=== PATIENT | male | born 1970 | race African-American/Black ===

== ENCOUNTER 2022-09-06 09:09 | Emergency (ER) | payer MEDICAID, OTHER ==
[~2022-09-06] VITALS: Ht 172.7 cm; Wt 90.0 kg
[2022-09-06 12:20] VITALS: BP 128/78
[2022-09-06] MEDS ORDERED: CYCL-837 PO (12:26)
== END 2022-09-06 12:42 | disposition home or self-care (01) ==
LOC: ER 09:09
DX: S39.012A Strain of muscle, fascia and tendon of lower back, initial encounter (principal); S70.12XA Contusion of left thigh, initial encounter; F17.210 Nicotine dependence, cigarettes, uncomplicated; F12.10 Cannabis abuse, uncomplicated; I10 Essential (primary) hypertension; V49.59XA Passenger injured in collision with other motor vehicles in traffic accident, initial encounter; Y93.89 Activity, other specified; Y92.89 Other specified places as the place of occurrence of the external cause; Y99.8 Other external cause status
CPT/HCPCS: 72100

== ENCOUNTER 2022-11-01 12:48 | Inpatient (IN) | payer MEDICAID ==
[~2022-11-01] VITALS: Ht 175.3 cm; Wt 60.3 kg
[~2022-11-01 12:48] MED LIST: CYCL-837 PO
[2022-11-01 14:04] LABS: Basophils # (auto) 0.1 10 ^3/uL (0-0.2); Eosinophils # (auto) 0.1 10 ^3/uL (0-0.8); Hematocrit 50.9 % (41.0-53.0); Hemoglobin 16.8 g/dL (13.5-17.5); Lymphocytes # (auto) 1.7 10 ^3/uL (0.4-5.4); Lymphocytes % (auto) 23.7 % (10.0-50.0); Mean Corpuscular Hemoglobin 31.5 pg (28.0-32.0); Mean Corpuscular Hgb Conc. 33.1 g/dL (32.0-36.0); Mean Corpuscular Volume 95.2 fL (80.0-100.0); Monocytes # (auto) 0.5 10 ^3/uL (0-1.3); Monocytes % (auto) 7.2 % (0.0-12.0); Neutrophils # (auto) 4.7 10 ^3/uL (1.6-8.6); Neutrophils % (auto) 66.1 % (37.0-80.0); Nucleated Red Blood Cells % 0.2 %; Red Blood Cells 5.35 10^6/uL (4.5-5.90); Red Cell Distribution Width 16.5 % (11.8-14.3); White Blood Cell 7.2 10^3/uL (4.4-10.8)
[2022-11-01 14:21] LABS: INR 1.35 (0.9-1.15)
[2022-11-01 14:30] LABS: Albumin 3.8 g/dL (3.4-5.0); BUN/Creatinine Ratio 12.4; Calcium 9.5 mg/dL (8.5-10.1); Magnesium 2.3 mg/dL (1.6-2.6); Potassium 4.2 mmol/L (3.5-5.1)
[2022-11-01 14:33] LABS: Bilirubin, Total 0.3 mg/dL (0.2-1.0); Total Protein 7.2 g/dL (6.4-8.2)
[2022-11-01] MEDS ORDERED: MORPHINE SULFATE INJ 2 MG/ml SYRG IV PRN ×2 (15:45)
[2022-11-01] MEDS ORDERED: NITROGLYCERIN 0.4 MG SL TAB SL PRN (15:45)
[2022-11-01] MEDS ORDERED: DOCUSATE SOD 100 MG CAP PO PRN (15:45)
[2022-11-01] MEDS ORDERED: ACETAMINOPHEN 325 MG TAB PO PRN (15:45)
[2022-11-01] MEDS ORDERED: ONDANSETRON HCL 4 MG/2 ML VIAL IV PRN (15:45)
[2022-11-01] MEDS ORDERED: D5W/SOD CHL 0.45% 1,000 ML IV ONE (16:00)
[2022-11-02 06:35] LABS: Basophils # (auto) 0 10 ^3/uL (0-0.2); Basophils % (auto) 0.8 % (0.0-2.0); Eosinophils # (auto) 0.2 10 ^3/uL (0-0.8); Eosinophils % (auto) 3.3 % (0.0-7.0); Hematocrit 48.2 % (41.0-53.0); Hemoglobin 15.6 g/dL (13.5-17.5); Lymphocytes # (auto) 1.6 10 ^3/uL (0.4-5.4); Lymphocytes % (auto) 26.8 % (10.0-50.0); Mean Corpuscular Hemoglobin 30.9 pg (28.0-32.0); Mean Corpuscular Hgb Conc. 32.4 g/dL (32.0-36.0); Mean Corpuscular Volume 95.2 fL (80.0-100.0); Monocytes # (auto) 0.5 10 ^3/uL (0-1.3); Monocytes % (auto) 8.6 % (0.0-12.0); Neutrophils # (auto) 3.6 10 ^3/uL (1.6-8.6); Neutrophils % (auto) 60.5 % (37.0-80.0); Nucleated Red Blood Cells % 0.2 %; Red Blood Cells 5.07 10^6/uL (4.5-5.90); Red Cell Distribution Width 16.4 % (11.8-14.3); White Blood Cell 5.9 10^3/uL (4.4-10.8)
[2022-11-02 06:50] LABS: Albumin 3.5 g/dL (3.4-5.0); Calcium 9.4 mg/dL (8.5-10.1); Potassium 4.1 mmol/L (3.5-5.1)
[2022-11-02 07:04] LABS: Bilirubin, Total 0.4 mg/dL (0.2-1.0)
[2022-11-02] MEDS: HYDROcodone-ACET 5/325MG TAB PO PRN ×2 (09:31→23:05)
[2022-11-02] MEDS ORDERED: LORazepam 2MG/ML-1ML VIAL IV PRN (10:00)
[2022-11-02] MEDS: ENOXAPARIN SOD 40 MG/0.4 ML SYRINGE SC SCH (10:12)
[2022-11-02] MEDS: ASPirin 81 mg TAB PO SCH (10:12)
[2022-11-02] MEDS ORDERED: hydrALAZINE HCL 20 MG/ML VL IV PRN (14:45)
[2022-11-02 22:00] VITALS: BP 158/83
[2022-11-02] MEDS ORDERED: AMLO-496 PO (22:53)
[2022-11-02] MEDS ORDERED: METF-869 PO (22:53)
[2022-11-02] MEDS ORDERED: METH500T22 PO (22:53)
[2022-11-02] MEDS: ATORVASTATIN 20 MG TAB PO SCH (23:04)
[2022-11-03 05:00] VITALS: BP 138/52
[2022-11-03 08:00] VITALS: BP 117/75
[2022-11-03] MEDS: ASPirin 81 mg TAB PO SCH (09:04)
[2022-11-03] MEDS: ENOXAPARIN SOD 40 MG/0.4 ML SYRINGE SC SCH (09:04)
[2022-11-03] MEDS: HYDROcodone-ACET 5/325MG TAB PO PRN (09:07)
[2022-11-03 13:00] VITALS: BP 144/85
[2022-11-03] MEDS: GABAPENTIN 300 MG CAP PO SCH ×2 (13:41→22:45)
[2022-11-03] MEDS: OXYCODONE W/ ACETAMINOPHEN 5/325MG TABLET PO PRN (16:26)
[2022-11-03] MEDS: metFORMIN HYDROCHLORIDE 500 MG TAB PO SCH (16:28)
[2022-11-03 17:00] VITALS: BP 127/76
[2022-11-03 22:00] VITALS: BP 134/75
[2022-11-03] MEDS: ATORVASTATIN 20 MG TAB PO SCH (22:44)
[2022-11-03] MEDS: METHOCARBAMOL 500 MG TAB PO SCH (22:46)
[2022-11-04] MEDS: OXYCODONE W/ ACETAMINOPHEN 5/325MG TABLET PO PRN (04:29)
[2022-11-04 05:00] VITALS: BP 127/59
[2022-11-04] MEDS: GABAPENTIN 300 MG CAP PO SCH ×3 (06:18→22:17)
[2022-11-04] MEDS: metFORMIN HYDROCHLORIDE 500 MG TAB PO SCH ×2 (08:00→18:00)
[2022-11-04 09:03] VITALS: BP 108/64
[2022-11-04] MEDS: ASPirin 81 mg TAB PO SCH (10:59)
[2022-11-04] MEDS: ENOXAPARIN SOD 40 MG/0.4 ML SYRINGE SC SCH (11:00)
[2022-11-04] MEDS: METHOCARBAMOL 500 MG TAB PO SCH ×2 (11:00→22:17)
[2022-11-04 13:00] VITALS: BP 121/78
[2022-11-04 16:38] VITALS: BP 109/56
[2022-11-04 19:35] LABS: Cholesterol 177 mg/dL (< 200); HDL Cholesterol 41 mg/dL (40-59); LDL Cholesterol 125 mg/dL (< 100); Triglycerides 91 mg/dL (< 150)
[2022-11-04 22:00] VITALS: BP 116/62
[2022-11-04] MEDS: ATORVASTATIN 20 MG TAB PO SCH (22:17)
[2022-11-04 22:47] LABS: Urine Bacteria NONE SEEN /hpf (None Seen); Urine Blood Negative /uL (Negative); Urine Specific Gravity 1.014 (1.001-1.035); Urine WBC <1 /hpf (0 - 3)
[2022-11-05] VITALS (20 sets, daily range): BP systolic 120–182; BP diastolic 64–99
[2022-11-05] MEDS: GABAPENTIN 300 MG CAP PO SCH ×3 (06:00→21:51)
[2022-11-05] MEDS: metFORMIN HYDROCHLORIDE 500 MG TAB PO SCH ×2 (08:00→18:00)
[2022-11-05] MEDS ORDERED: fentaNYL CITRATE 100 MCG/2 ML VL IV ONE (08:30)
[2022-11-05] MEDS ORDERED: LIDOCAINE VISCOUS 2% 15ML UD PO ONE (08:30)
[2022-11-05] MEDS ORDERED: MIDAZOLAM HCL 2MG/2ML 2ml VIAL (1mg/ml) IV ONE (08:30)
[2022-11-05] MEDS: METHOCARBAMOL 500 MG TAB PO SCH ×2 (10:00→21:51)
[2022-11-05] MEDS: ENOXAPARIN SOD 40 MG/0.4 ML SYRINGE SC SCH (10:00)
[2022-11-05] MEDS: ASPirin 81 mg TAB PO SCH (10:00)
[2022-11-05] MEDS ORDERED: IOHEXOL 350 MG/ML 100ML IJ ONE ×2 (12:41→13:28)
[2022-11-05] MEDS ORDERED: LIDOCAINE 2%HCL (LOCAL ANESTH.) INJ 20ML MDV ONE (12:42)
[2022-11-05] MEDS ORDERED: ANGIOMAX 250 MG VIAL IV ONE (13:27)
[2022-11-05] MEDS ORDERED: MIDAZOLAM HCL 2MG/2ML 2ml VIAL (1mg/ml) ONE (13:27)
[2022-11-05] MEDS ORDERED: GLYCOPYRROLATE 0.2 MG/ML 1ML VIAL ONE (13:27)
[2022-11-05] MEDS ORDERED: fentaNYL CITRATE 100 MCG/2 ML VL ONE (13:27)
[2022-11-05] MEDS ORDERED: SODIUM CHL 0.9% 0 ML ONE (13:27)
[2022-11-05] MEDS ORDERED: LIDOCAINE 2%HCL (LOCAL ANESTH.) INJ 10ml MDV ONE (13:45)
[2022-11-05] MEDS: ATORVASTATIN 20 MG TAB PO SCH (21:50)
[2022-11-05] MEDS: OXYCODONE W/ ACETAMINOPHEN 5/325MG TABLET PO PRN (21:52)
[2022-11-06 04:58] VITALS: BP 128/71
[2022-11-06] MEDS: GABAPENTIN 300 MG CAP PO SCH ×3 (06:30→21:12)
[2022-11-06 09:00] VITALS: BP 116/68
[2022-11-06] MEDS: METHOCARBAMOL 500 MG TAB PO SCH ×2 (09:29→21:55)
[2022-11-06] MEDS: metFORMIN HYDROCHLORIDE 500 MG TAB PO SCH ×2 (09:30→18:14)
[2022-11-06] MEDS: ASPirin 81 mg TAB PO SCH (09:31)
[2022-11-06] MEDS: ENOXAPARIN SOD 40 MG/0.4 ML SYRINGE SC SCH (09:31)
[2022-11-06] MEDS: OXYCODONE W/ ACETAMINOPHEN 5/325MG TABLET PO PRN ×3 (09:40→21:56)
[2022-11-06 13:00] VITALS: BP 120/60
[2022-11-06 17:00] VITALS: BP 122/66
[2022-11-06 20:00] VITALS: BP 122/66
[2022-11-06] MEDS: ATORVASTATIN 20 MG TAB PO SCH (21:54)
[2022-11-06 22:29] VITALS: BP 122/66
[2022-11-07 05:00] VITALS: BP 110/59
[2022-11-07] MEDS: GABAPENTIN 300 MG CAP PO SCH ×3 (05:49→21:10)
[2022-11-07] MEDS: metFORMIN HYDROCHLORIDE 500 MG TAB PO SCH ×2 (07:26→17:33)
[2022-11-07 08:00] VITALS: BP 113/68
[2022-11-07 09:00] VITALS: BP 113/68
[2022-11-07] MEDS: ENOXAPARIN SOD 40 MG/0.4 ML SYRINGE SC SCH (09:05)
[2022-11-07] MEDS: ASPirin 81 mg TAB PO SCH (09:05)
[2022-11-07] MEDS: METHOCARBAMOL 500 MG TAB PO SCH ×2 (09:05→22:03)
[2022-11-07 13:00] VITALS: BP 120/65
[2022-11-07 16:58] VITALS: BP 138/77
[2022-11-07] MEDS: OXYCODONE W/ ACETAMINOPHEN 5/325MG TABLET PO PRN (21:11)
[2022-11-07 22:00] VITALS: BP 107/55
[2022-11-07] MEDS: ATORVASTATIN 20 MG TAB PO SCH (22:03)
[2022-11-08] VITALS (7 sets, daily range): BP systolic 113–162; BP diastolic 65–82
[2022-11-08] MEDS: GABAPENTIN 300 MG CAP PO SCH ×3 (06:22→21:41)
[2022-11-08] MEDS: ASPirin 81 mg TAB PO SCH (08:50)
[2022-11-08] MEDS: metFORMIN HYDROCHLORIDE 500 MG TAB PO SCH ×2 (08:50→18:35)
[2022-11-08] MEDS: METHOCARBAMOL 500 MG TAB PO SCH ×2 (08:50→21:46)
[2022-11-08] MEDS: ENOXAPARIN SOD 40 MG/0.4 ML SYRINGE SC SCH (08:50)
[2022-11-08] MEDS: ATORVASTATIN 20 MG TAB PO SCH (21:41)
[2022-11-09 05:00] VITALS: BP 123/70
[2022-11-09] MEDS: GABAPENTIN 300 MG CAP PO SCH ×3 (05:13→22:12)
[2022-11-09] MEDS: metFORMIN HYDROCHLORIDE 500 MG TAB PO SCH (08:00)
[2022-11-09 08:54] VITALS: BP 126/63
[2022-11-09] MEDS: ENOXAPARIN SOD 40 MG/0.4 ML SYRINGE SC SCH (09:58)
[2022-11-09] MEDS: METHOCARBAMOL 500 MG TAB PO SCH ×2 (09:59→22:00)
[2022-11-09] MEDS: ASPirin 81 mg TAB PO SCH (10:00)
[2022-11-09 13:00] VITALS: BP 138/71
[2022-11-09 17:11] VITALS: BP 129/70
[2022-11-09] MEDS: OXYCODONE W/ ACETAMINOPHEN 5/325MG TABLET PO PRN (19:51)
[2022-11-09 20:00] VITALS: BP 113/71
[2022-11-09 22:00] VITALS: BP 123/66
[2022-11-09] MEDS: ATORVASTATIN 20 MG TAB PO SCH (22:12)
[2022-11-10 05:00] VITALS: BP 122/62
[2022-11-10] MEDS: GABAPENTIN 300 MG CAP PO SCH ×3 (05:09→21:36)
[2022-11-10 08:00] VITALS: BP 113/71
[2022-11-10] MEDS: ASPirin 81 mg TAB PO SCH (10:01)
[2022-11-10] MEDS: METHOCARBAMOL 500 MG TAB PO SCH ×2 (10:02→21:37)
[2022-11-10] MEDS: ENOXAPARIN SOD 40 MG/0.4 ML SYRINGE SC SCH (10:02)
[2022-11-10 17:01] VITALS: BP 122/66
[2022-11-10 20:00] VITALS: BP 143/73
[2022-11-10] MEDS: ATORVASTATIN 20 MG TAB PO SCH (21:36)
[2022-11-10 22:00] VITALS: BP 143/73
[2022-11-11] VITALS (7 sets, daily range): BP systolic 120–146; BP diastolic 60–72
[2022-11-11] MEDS: OXYCODONE W/ ACETAMINOPHEN 5/325MG TABLET PO PRN ×2 (03:44→20:42)
[2022-11-11] MEDS: GABAPENTIN 300 MG CAP PO SCH ×3 (05:21→23:08)
[2022-11-11] MEDS: metFORMIN HYDROCHLORIDE 500 MG TAB PO SCH ×2 (08:31→18:12)
[2022-11-11] MEDS: ASPirin 81 mg TAB PO SCH (10:32)
[2022-11-11] MEDS: ENOXAPARIN SOD 40 MG/0.4 ML SYRINGE SC SCH (10:33)
[2022-11-11] MEDS: METHOCARBAMOL 500 MG TAB PO SCH ×2 (10:33→23:08)
[2022-11-11] MEDS: ATORVASTATIN 20 MG TAB PO SCH (23:08)
[2022-11-12] VITALS (7 sets, daily range): BP systolic 103–138; BP diastolic 55–77
[2022-11-12] MEDS: GABAPENTIN 300 MG CAP PO SCH ×3 (05:53→21:33)
[2022-11-12] MEDS: metFORMIN HYDROCHLORIDE 500 MG TAB PO SCH ×2 (07:58→17:50)
[2022-11-12] MEDS: METHOCARBAMOL 500 MG TAB PO SCH ×2 (10:27→21:33)
[2022-11-12] MEDS: ASPirin 81 mg TAB PO SCH (10:27)
[2022-11-12] MEDS: ENOXAPARIN SOD 40 MG/0.4 ML SYRINGE SC SCH (10:30)
[2022-11-12] MEDS: OXYCODONE W/ ACETAMINOPHEN 5/325MG TABLET PO PRN (11:46)
[2022-11-12] MEDS: ATORVASTATIN 20 MG TAB PO SCH (21:33)
[2022-11-13] MEDS: OXYCODONE W/ ACETAMINOPHEN 5/325MG TABLET PO PRN (01:45)
[2022-11-13 05:00] VITALS: BP 127/64
[2022-11-13] MEDS: GABAPENTIN 300 MG CAP PO SCH ×2 (05:28→13:50)
[2022-11-13] MEDS ORDERED: ATOR40TA52 PO (06:22)
[2022-11-13] MEDS ORDERED: ASPI-325 PO (06:22)
[2022-11-13 08:00] VITALS: BP 119/70
[2022-11-13] MEDS: metFORMIN HYDROCHLORIDE 500 MG TAB PO SCH (08:29)
[2022-11-13 08:52] VITALS: BP 119/70
[2022-11-13] MEDS: METHOCARBAMOL 500 MG TAB PO SCH (10:25)
[2022-11-13] MEDS: ASPirin 81 mg TAB PO SCH (10:26)
[2022-11-13] MEDS: ENOXAPARIN SOD 40 MG/0.4 ML SYRINGE SC SCH (10:26)
[2022-11-13 13:00] VITALS: BP 120/61
[2022-11-13 13:05] VITALS: BP 119/70
== END 2022-11-13 13:45 | disposition home health service (06) | DRG 45 ==
LOC: ER 12:48 → TELE 15:50 → TELE-WESTW 11-02 21:17
PROVIDERS: ADMIT Nurse Practitioner; ATTEND Nurse Practitioner
PROC: B24BZZ4 Ultrasonography of Heart with Aorta, Transesophageal (ICD-10-PCS; principal; 2022-11-05)
PROC: B41C1ZZ Fluoroscopy of Pelvic Arteries using Low Osmolar Contrast (ICD-10-PCS; 2022-11-05)
DX: I63.512 Cerebral infarction due to unspecified occlusion or stenosis of left middle cerebral artery (principal); E11.51 Type 2 diabetes mellitus with diabetic peripheral angiopathy without gangrene; G81.91 Hemiplegia, unspecified affecting right dominant side; H53.461 Homonymous bilateral field defects, right side; R47.01 Aphasia; I16.0 Hypertensive urgency; I65.22 Occlusion and stenosis of left carotid artery; I25.10 Atherosclerotic heart disease of native coronary artery without angina pectoris; E78.5 Hyperlipidemia, unspecified; Z20.822 Contact with and (suspected) exposure to COVID-19; F17.210 Nicotine dependence, cigarettes, uncomplicated; I10 Essential (primary) hypertension; I25.2 Old myocardial infarction; Z79.82 Long term (current) use of aspirin; Z79.899 Other long term (current) drug therapy; Z82.49 Family history of ischemic heart disease and other diseases of the circulatory system; Z86.73 Personal history of transient ischemic attack (TIA), and cerebral infarction without residual deficits; Z89.512 Acquired absence of left leg below knee
CPT/HCPCS: 36415; 70450; 70498; 70545; 70551; 71045; 75710; 80053; 80061; 81001; 82962; 83735; 83880; 84443; 84484; 85025; 85610; 85730; 87426; 92523; 93005; 93306; 93312; 93886; 99152; G0378; J2001; J2250